=== PATIENT | female | born 1965 | race Caucasian/White ===

== ENCOUNTER 2017-10-06 14:19 | Emergency (ER) | payer BC ==
[~2017-10-06] VITALS: Ht 165.1 cm; Wt 107.8 kg
[2017-10-06 16:15] LABS: HEMATOCRIT 43.2 % (36.0-46.0); HEMOGLOBIN 14.7 G/DL (11.9-15.5); MCH 29.4 PG (29.0-34.0); MCV 86.4 FL (83-99); PLATELET COUNT 226 K/uL (156-360); RBC DIS.WIDTH-CV 13.3 % (11.8-14.6); RBC DIS.WIDTH-SD 41.6 % (39-53); WHITE BLOOD COUNT 14.5 K/uL (4.1-10.2)
[2017-10-06 16:23] LABS: INTER. NORMALIZED RATIO 1.2
[2017-10-06 16:24] LABS: CHLORIDE 104 mEq/L (99-109); POTASSIUM 5.1 mEq/L (3.7-5.4); SODIUM 139 mEq/L (136-147)
[2017-10-06 16:25] LABS: PTT 29.3 SEC (25-37)
[2017-10-06 16:26] LABS: GLUCOSE 90 mg/dL (70-99)
[2017-10-06 16:30] LABS: GFR ESTIMATE (CALCULATED) > 59 mL/min/
[2017-10-06 16:31] LABS: UREA NITROGEN (BUN) 16 mg/dL (9-23)
[2017-10-06 17:27] LABS: TROP-I INTERPRETATION NEGATIVE; TROPONIN-I < 0.01 ng/mL (0.0-0.30)
[2017-10-06 19:38] VITALS: BP 129/69
== END 2017-10-06 19:41 | disposition short-term general hospital (02) ==
LOC: EME 14:19
PROVIDERS: Nurse Practitioner Family
DX: I82.422 Acute embolism and thrombosis of left iliac vein (principal); I82.412 Acute embolism and thrombosis of left femoral vein; I82.432 Acute embolism and thrombosis of left popliteal vein; I82.442 Acute embolism and thrombosis of left tibial vein; I82.492 Acute embolism and thrombosis of other specified deep vein of left lower extremity; M79.89 Other specified soft tissue disorders; R10.32 Left lower quadrant pain
CPT/HCPCS: 80048; 84484; 85027; 85610; 85730; 93005; 93971; 99281; 99285